=== PATIENT | female | born 1980 | race Two or more races ===

== ENCOUNTER → 2024-02-25 12:27 | Outpatient (REF) | payer BC, SELFPAY | LOC: HWWDC 12:27 | PROVIDERS: ATTENDING PHYSICIAN Physician Assistant Medical | DX: Z12.31 Encounter for screening mammogram for malignant neoplasm of breast (principal) | CPT/HCPCS: 77063; 77067 ==

== ENCOUNTER → 2024-12-02 07:22 | Outpatient (REF) | payer BC, SELFPAY | LOC: HWRAD 07:22 | PROVIDERS: ATTENDING PHYSICIAN Physician Assistant Medical | DX: R74.8 Abnormal levels of other serum enzymes (principal); E01.0 Iodine-deficiency related diffuse (endemic) goiter | CPT/HCPCS: 76536; 76700 ==

== ENCOUNTER → 2025-01-17 12:59 | Outpatient (REF) | payer BC, SELFPAY | LOC: RCS 12:59 | PROVIDERS: ATTENDING PHYSICIAN Internal Medicine; FAMILY PHYSICIAN Physician Assistant Medical | DX: I10 Essential (primary) hypertension (principal); I47.11 Inappropriate sinus tachycardia, so stated | CPT/HCPCS: 93306 ==

== ENCOUNTER → 2025-04-05 17:19 | Outpatient (REF) | payer BC, SELFPAY | LOC: WDC 17:19 | PROVIDERS: ATTENDING PHYSICIAN Physician Assistant Medical | DX: Z12.31 Encounter for screening mammogram for malignant neoplasm of breast (principal) | CPT/HCPCS: 77063; 77067 ==